=== PATIENT | female | born 1950 | race Caucasian/White ===

== ENCOUNTER 2020-12-20 14:51 | Outpatient (REF) | payer MEDICARE, SELFPAY ==
[2020-12-20 20:35] LABS: Anion Gap 8.5 mmol/L (3-11); BUN 14 mg/dL (7-18); CO2 30.5 mmol/L (21.0-32.0); CREATININE 0.8 mg/dL (0.55-1.02); Calcium 9.5 mg/dL (8.5-10.1); Calculated LDL 197 mg/dL (<100); Chloride 101 mmol/L (98-107); Cholesterol 296 mg/dL (<200); Glucose 98 mg/dL (74-106); HDL Cholesterol 71 mg/dL (40-60); Potassium 3.7 mmol/L (3.5-5.1); Sodium 140 mmol/L (136-145); TSH 2.41 uIU/mL (0.36-3.74); Triglyceride 143 mg/dL (<150)
[2020-12-20 20:47] LABS: Vitamin D 25 Total 34.5 ng/mL (30-100)
== END 2020-12-20 14:52 | disposition home or self-care (01) ==
LOC: NCHCN 14:51
PROVIDERS: Visit Provider Nurse Practitioner Family
DX: E03.9 Hypothyroidism, unspecified (principal); I10 Essential (primary) hypertension; E78.5 Hyperlipidemia, unspecified
CPT/HCPCS: 80048; 80061; 82306; 84443

== ENCOUNTER 2022-03-14 13:33 | Outpatient (REF) | payer MEDICARE, BC, SELFPAY ==
[2022-03-14 16:32] LABS: TSH 0.99 uIU/mL (0.36-3.74)
== END 2022-03-14 13:34 | disposition home or self-care (01) ==
LOC: NCHCN 13:33
PROVIDERS: PCP Nurse Practitioner Family; Visit Provider Nurse Practitioner Family
DX: E03.9 Hypothyroidism, unspecified (principal)
CPT/HCPCS: 84443

== ENCOUNTER 2022-05-18 14:52 | Outpatient (REF) | payer MEDICARE, BC, SELFPAY ==
[2022-05-18 15:28] LABS: Anion Gap 5.8 mmol/L (3-11); BUN 16 mg/dL (7-18); CO2 30.2 mmol/L (21.0-32.0); CREATININE 0.8 mg/dL (0.55-1.02); Calcium 9.7 mg/dL (8.5-10.1); Calculated LDL 148 mg/dL (<100); Chloride 104 mmol/L (98-107); Cholesterol 232 mg/dL (<200); Estimated GFR 79.22 (mL/min/1.73m2); Glucose 87 mg/dL (74-106); HDL Cholesterol 61 mg/dL (40-60); Potassium 4.3 mmol/L (3.5-5.1); Sodium 140 mmol/L (136-145); Triglyceride 116 mg/dL (<150)
[2022-05-18 16:19] LABS: Vitamin D 25 Total 31.1 ng/mL (30-100)
== END 2022-05-18 14:53 | disposition home or self-care (01) ==
LOC: NCHCN 14:52
PROVIDERS: PCP Nurse Practitioner Family; Visit Provider Nurse Practitioner Family
DX: I10 Essential (primary) hypertension (principal); E78.5 Hyperlipidemia, unspecified; F34.1 Dysthymic disorder; E03.9 Hypothyroidism, unspecified; Z79.899 Other long term (current) drug therapy
CPT/HCPCS: 80048; 80061; 82306

== ENCOUNTER 2022-10-09 15:07 | Outpatient (REF) | payer MEDICARE, BC, SELFPAY ==
--- NOTE | 2022-10-09 11:40 | SKI_PTH ---
PATIENT: Mel Jain LOC: [facility] U#:[id number] AGE/SX: 72/F ROOM: RE10/09/[address]: Henrietta Coats : 1950 BED: DIS: 10/09/2022 SPEC #: [id number] RECD: 10/09/22 18:03 STATUS: KRUNAL MENDOZA #: [id number] MICHAEL: 10/09/22 11:[address]: Henrietta Coats DEPT: Surgical Specimen RECD BY: Yudy Rodriguez ENTERED: 10/09/22 18:04 SP TYPE: JACQUI BUCHANAN DR: Gabrielle Finn Tissues: 1 - SKIN BIOPSY(SHAVE/PUNCH) Procedures: SKIN LEVEL 4 Comments: [id number]
== END 2022-10-09 15:08 | disposition home or self-care (01) ==
LOC: LBN 15:07
PROVIDERS: PCP Nurse Practitioner Family; Visit Provider Family Medicine
DX: L82.0 Inflamed seborrheic keratosis (principal)
CPT/HCPCS: 88305

== ENCOUNTER 2024-04-15 11:28 | Outpatient (REF) | payer MEDICARE, BC, SELFPAY ==
--- NOTE | 2024-04-15 11:30 | PAPFT_PTH ---
PATIENT: Mel Jain LOC: [facility] U#:[id number] AGE/SX: 74/F ROOM: RE04/15/[address]: Carmenza Guerra MD : 1950 BED: DIS: 04/15/2024 SPEC #: [id number] RECD: 04/15/24 17:43 STATUS: KRUNAL REQ #: [id number] MICHAEL: 04/15/24 11:[address]: Carmenza Guerra DEPT: [facility] Cytology RECD BY: Yudy Rodriguez ENTERED: 04/15/24 17:44 SP TYPE: PAPFT OTHR DR: Gabrielle Finn Tissues: 1 - CX/ENDOCX FOR PAP SMEARS Procedures: PAP THIN PREP/UVM Screening Comments: [id number]
== END 2024-04-15 11:29 | disposition home or self-care (01) ==
LOC: LBN 11:28
PROVIDERS: PCP Nurse Practitioner Family; Visit Provider Obstetrics & Gynecology
DX: Z12.4 Encounter for screening for malignant neoplasm of cervix (principal); R19.00 Intra-abdominal and pelvic swelling, mass and lump, unspecified site; Z91.89 Other specified personal risk factors, not elsewhere classified; R61 Generalized hyperhidrosis; K59.00 Constipation, unspecified; N81.6 Rectocele; N39.41 Urge incontinence; Z80.3 Family history of malignant neoplasm of breast
CPT/HCPCS: 88142

== ENCOUNTER 2024-05-16 00:26 | Outpatient (CLI) | payer MEDICARE, BC, SELFPAY ==
--- NOTE | 2024-05-16 | DI.US_ITS ---
Exam(s) US HERNIA EXAM: US HERNIA CLINICAL HISTORY: PELVIC PERINEAL PAIN R10.2 R INGUINAL/FEMORAL DISCOMFORT/BULGE-ASSESS FOR. TECHNIQUE: Ultrasound was performed using standard protocol. COMPARISON: No exams were available for comparison FINDINGS: Sonographic assessment utilizing grayscale and color Doppler imaging was performed and targeted to th e area of clinical concern in the right inguinal region.. A right inguinal hernia is present containing fat. A bowel loop is seen to enter the hernia with Va lsalva. Hernia neck measures 2.8-3.1 cm. No fluid. IMPRESSION: Fat containing right inguinal hernia also containing reducible bowel. DATA REPOSITORY:
== END 2024-05-16 00:46 ==
LOC: DI 00:26
PROVIDERS: PCP Nurse Practitioner Family; Visit Provider Family Medicine
DX: K40.90 Unilateral inguinal hernia, without obstruction or gangrene, not specified as recurrent (principal)
CPT/HCPCS: 76857

== ENCOUNTER 2024-05-19 16:02 | Outpatient (REF) | payer MEDICARE, BC, SELFPAY ==
[2024-05-19 20:52] LABS: Bilirubin Negative (Negative); Blood Moderate (Negative); Clarity Clear (Clear); Glucose Negative (Negative); Ketones Negative (Negative); Leukocyte Esterase Negative (Negative); Nitrite Negative (Negative); Specific Gravity 1.015 (1.005-1.025); Urobilinogen 0.2 mg/dL (Up to 0.2); pH 5.5 (5-8)
[2024-05-19 21:12] LABS: Bacteria Negative HPF (Negative); C & S Indicated? No; Casts Negative LPF (Negative); Crystals Negative HPF (Negative); Epithelial Cells Rare HPF (Negative); Mucus Negative (Negative); Other Cells Rare Transitional (Negative); RBC 0-2 HPF (0-2); WBC Negative HPF (0-5)
== END 2024-05-19 16:03 | disposition home or self-care (01) ==
LOC: NCHCN 16:02
PROVIDERS: PCP Nurse Practitioner Family; Visit Provider Nurse Practitioner Family
DX: R39.15 Urgency of urination (principal)
CPT/HCPCS: 81003; 81015

== ENCOUNTER → 2024-05-21 11:35 | Outpatient (BNVA) | payer MEDICARE, BC, SELFPAY | PROVIDERS: PCP Nurse Practitioner Family; Referring Provider Obstetrics & Gynecology; Visit Provider Surgery | DX: K46.9 Unspecified abdominal hernia without obstruction or gangrene (principal) | CPT/HCPCS: 99203 ==

== ENCOUNTER 2024-07-01 06:18 | Day surgery (SDC) | payer MEDICARE, BC, SELFPAY ==
--- NOTE | 2024-06-30 16:32 | HPE_ITS ---
Assessment and Plan Assessment and plan (1) Abdominal lump: Status: Acute Assessment and plan: We reviewed the plan for laparoscopic abdominal wall or inguinal hernia repair on the right side today. We reviewed the risks and the benefits of the proc edure, Mle had the chance to ask any other questions. No and no other significant changes, and we can proceed as planned. History of Present Illness History of Present Illness Chief Complaint: Right lower quadrant lump Narrative: Mel has a lump in the right lower quadrant of her abdominal wall. She first noticed it back in December, but she had appreciated some discomfort in the area for many months, and perhaps even years prior to that. She tells me that when she first noticed the lump back in December, she had not been doing anything out of the ordinary with regards to exercise or stress. She has, however, recently undergone myofascial release for chronic abdominal and flank pain. She relates this pain to complicated in her 30s. She also thought that perhaps a previous diagnosis of Lyme's disease might be contributing to that. Other significant medical history includes rectocele, and heterozygous factor V Leiden mutation Since her last office encounter, she has been feeling a little bit better, but admits to decreasing a lot of her physical activity to try to reduce discomfort. Otherwise, there have been no major interval changes with regards to the history. PFSH All Active Problems Night sweats (Acute) Abdominal lump (Acute) Rectal bleeding (Acute) Hypertension (Chronic) Hypothyroidism (Chronic) Medical History Allergies Hx of Lyme disease Family history of breast cancer Sister - age 45 - lumpectomy, doing well. Pt with negative genetic testing as part of a study. History of infertility Surgery for lysis of adhesions - does not think she had endometriosis. through IVF. 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 Housing: house Additional Social history: [facility] History History Para 1 Hx # Term Pregnancies Multiple births Hx # Pregnancies Ectopic pregnancies AB induced Hx Number of Living Children 1 AB spontaneous Past Pregnancies Del. Date GA/Weeks # Preg Succ Route Wgt Sex Labor Lgth Anesth esia Location Prov Complic 04/13/85 40 No Yes vaginal 8 lb 8 oz Female [place] Delivery Date: 04/13/85 Last Updated by: Kadie Morales RN [place] Meds Allergies and Home Medications Allergies Allergy/AdvReac Type Severity Reaction Status Date / Time cefotaxime (From Claforan) Allergy Severe Other (See Verified 07/01/24 06:28 Comment) adhesive Allergy Intermediate Other (See Verified 07/01/24 06:28 Comment) Iodinated Contrast Media Allergy Intermediate Skin Rash Verified 07/01/24 06:28 lisinopril Allergy Intermediate Other (See Verified 07/01/24 06:28 Comment) Home Medications ?Medication ?Instructions ?Recorded ?Confirmed ?Type amlodipine 5 mg tablet 5 mg PO DAILY 04/04/21 07/01/24 History calcium carbonate (Calcium 500) 500 mg PO DAILY 04/04/21 06/27/24 History cholecalciferol (vitamin D3) 50 50 mcg PO DAILY 04/04/21 06/27/24 History mcg (2,000 unit) capsule clonazepam 1 mg tablet 0.5 mg PO QHS 04/04/21 06/27/24 History lactobacillus combination no.9 4 4,000 mmu cells PO DAILY 04/04/21 06/27/24 History billion cell capsule (Adult 50 Plus Probiotic) multivitamin 1 tab PO DAILY 04/04/21 06/27/24 History omega-3 fatty acids 1,000 mg 1,000 mg PO DAILY 04/04/21 06/27/24 History capsule propylene glycol 0.6 % eye drops 1 drp ophthalmic (eye) DAILY PRN 04/04/21 06/27/24 History (Lubricant Eye (propylene glycol)) levothyroxine 125 mcg tablet 112 mcg PO DAILY 04/15/24 07/01/24 History (Synthroid) olmesartan 20 mg tablet 20 mg PO DAILY 04/15/24 07/01/24 History propranolol 20 mg tablet 20 mg PO DAILY 04/15/24 07/01/24 History polyethylene glycol 3350 17 17 g PO DAILY 06/24/24 06/27/24 History gram/dose oral powder (Miralax) Exam Const General: cooperative, healthy appearing and not in acute distress Neck Neck: normal visual inspection, no lymphadenopathy and supple Resp Effort & Inspection: normal respiratory effort Auscultation: clear to auscultation bilaterally Cardio Jugular venous pressure: no JVD Rate: regular rate Rhythm: regular rhythm Heart Sounds: S1 normal and S2 normal GI Inspection: normal to inspection Palpation: soft, no guarding, hernia (Hard to appreciate an inguinal hernia today, but mild tenderness) and nontender Percussion: normal to percussion Auscultation: normal bowel sounds Neuro General: patient alert, patient awake and patient oriented x3 Psych Appearance: grossly normal
--- NOTE | 2024-06-30 16:33 | W.PM.DSUDISC ---
Date of service: 07/01/24 Discharge Plan Disposition Patient Disposition: Home Condition: Good Discharge Details Reason For Visit: Laparoscopic inguinal hernia repair Attending Provider: Aman Null Primary Care Provider: Gabrielle Finn Home Meds and New Rx's Prescriptions: New tramadol 50 mg tablet 50 mg PO Q8H PRNQty: 9 0RF Rx Instructions: Take 1 tablet by mouth up to every 8 hours if needed for severe pain. Continued propranolol 20 mg tablet 20 mg PO DAILY Patient Comments: Per pt. states can take up to 60mg PRN olmesartan 20 mg tablet 20 mg PO DAILY Adult 50 Plus Probiotic 4 billion cell capsule 4,000 mmu cells PO DAILY Rx Instructions: administer with a meal multivitamin Tablet 1 tab PO DAILY Lubricant Eye (propyl glycol) 0.6 % drops 1 drp ophthalmic (eye) DAILY PRN clonazepam 1 mg tablet 0.5 mg PO QHS Rx Instructions: administer 30 minutes before bedtime amlodipine 5 mg tablet 5 mg PO DAILY calcium carbonate [Calcium 500] 500 mg calcium (1,250 mg) tablet,chewable 500 mg PO DAILY omega-3 fatty acids 1,000 mg capsule 1,000 mg PO DAILY cholecalciferol (vitamin D3) 50 mcg (2,000 unit) capsule 50 mcg PO DAILY levothyroxine [Synthroid] 125 mcg tablet 112 mcg PO DAILY polyethylene glycol 3350 [Miralax] 17 gram/dose powder 17 g PO DAILY Discharge Instructions Instructions: Groin Hernia Repair, Laparoscopic Surgery Additional Instructions: Mel is good seeing you today, hope you make a quick recovery after the operation. Things went very smoothly, we are able to find the origin of the hernia, which did in fact involve the right inguinal region, or right groin. And repair of this with permanent mesh. In the process of doing so, we also discovered a very small right-sided femoral hernia, that we were able to address during this operation as well. Everything went very smoothly. Expect to get some bruising around the incision sites, even down into the groin after surgery. That is very common. You should be up and moving around a little bit more more each day. Please keep your lifting less than about a gallon of milk until we see each other in the office to ensure that everything feels well and is settling into place. If you need anything at all, please do not hesitate to ask, otherwise look forward to seeing you at your postoperative visit. 1. Resume all of your regular medications. 2. Use ice packs over the incision, and at points of pain if needed for pain and swelling. 3. Alternate [id number] Tylenol and ibuprofen every 6 hours for the first 2 days, then use as needed. Use the prescription for tramadol if needed for more severe pain 4. Leave bandage in place for 24 hours, then remove. 5. Shower with warm soapy water. Pat dry. Use a bandaid if needed to protect your clothing. 6. No soaking or tub baths until I see you in the office. 7. No heavy lifting until I see you in the office. 8. Call the office (or go directly to the emergency room after hours) if you notice any of the following: Develop chills (warm to touch), or if you have a thermometer and your temperature is above 101 Difficulty breathing or difficultly swallowing Persistent vomiting Any bleeding ? exceeding one tablespoon 9. Call your physician if the site where your intravenous was started becomes red, swollen, painful, and warm to touch. Referrals: Aman Null MD [ [facility] STAFF PHYSICIAN] - (July 16 at 1 PM) Activity:: No heavy lifting Remove Dressings/Wound Care:: 24 hours Shower/Bathe:: 24 hours Diet:: As Tolerated Discharge Orders Discharge Orders: Discharge Order (Routine); Ordered 06/30/24 Ordered By: Aman Null DS: Diagnosis Discharge Diagnosis (1) Inguinal hernia of right side with gangrene: Status: Acute
[2024-07-01] VITALS (30 sets, daily range): BP systolic 86–132; BP diastolic 44–99; PULSE 46–62; RESP 11–21; TEMP 36–36.6; O2SAT 88–97; BMI 30.4
[2024-07-01] MEDS: Gabapentin 300 MG CAP PO (06:53)
[2024-07-01] MEDS: Acetaminophen 500 MG TAB 1000 MG PO (06:53)
[2024-07-01] MEDS: Celecoxib 200 MG CAP PO (06:53)
--- NOTE | 2024-07-01 06:54 | W.ANESPRE ---
General Info Date of Service Date Performed: 07/01/24 Height: 5 ft 5 in Weight: 83 kg Body Mass Index (BMI): 30.4 Surgical Procedure: Operation Date: 07/01/24 07:40 Proposed Procedure Side Surgeon p Hernia Inguinal Laparoscopic Right Aman Null MD Meds Allergies and Home Medications Allergies Allergy/AdvReac Type Severity Reaction Status Date / Time cefotaxime (From Claforan) Allergy Severe Other (See Verified 07/01/24 06:28 Comment) adhesive Allergy Intermediate Other (See Verified 07/01/24 06:28 Comment) Iodinated Contrast Media Allergy Intermediate Skin Rash Verified 07/01/24 06:28 lisinopril Allergy Intermediate Other (See Verified 07/01/24 06:28 Comment) Home Medication ?Medication ?Instructions ?Recorded amlodipine 5 mg tablet 5 mg PO DAILY 04/04/21 calcium carbonate (Calcium 500) 500 mg PO DAILY 04/04/21 cholecalciferol (vitamin D3) 50 50 mcg PO DAILY 04/04/21 mcg (2,000 unit) capsule clonazepam 1 mg tablet 0.5 mg PO QHS 04/04/21 lactobacillus combination no.9 4 4,000 mmu cells PO DAILY 04/04/21 billion cell capsule (Adult 50 Plus Probiotic) multivitamin 1 tab PO DAILY 04/04/21 omega-3 fatty acids 1,000 mg 1,000 mg PO DAILY 04/04/21 capsule propylene glycol 0.6 % eye drops 1 drp ophthalmic (eye) DAILY PRN 04/04/21 (Lubricant Eye (propylene glycol)) levothyroxine 125 mcg tablet 112 mcg PO DAILY 04/15/24 (Synthroid) olmesartan 20 mg tablet 20 mg PO DAILY 04/15/24 propranolol 20 mg tablet 20 mg PO DAILY 04/15/24 polyethylene glycol 3350 17 17 g PO DAILY 06/24/24 gram/dose oral powder (Miralax) tramadol 50 mg tablet 50 mg PO Q8H PRN #9 tabs 07/01/24 Current Visit Medications: Current Medications Generic Name Dose Route Start Last Admin Trade Name Freq PRN Reason Stop Dose Admin Acetaminophen 1,000 mg 07/01/24 06:00 07/01/24 06:53 Acetaminophen 500 Mg Tab PO 07/01/24 23:59 1,000 mg PREOP JACEY Administration Celecoxib 200 mg 07/01/24 06:00 07/01/24 06:53 Celecoxib 200 Mg Cap PO 07/01/24 23:59 200 mg PREOP JACEY Administration Gabapentin 300 mg 07/01/24 06:00 07/01/24 06:53 Gabapentin 300 Mg Cap PO 07/01/24 23:59 300 mg PREOP JACEY Administration Hydromorphone HCl 0.2 mg 06/30/24 16:34 Hydromorphone 2 Mg/Ml Syr IVP 07/30/24 16:33 Q1H PRN PRN Ringer's Solution 1,000 mls @ 80 mls/hr 07/01/24 06:00 IV 07/01/24 23:59 INFUSION JACEY Cefazolin Sodium/Dextrose 2 gm in 50 mls @ 100 mls/hr 07/01/24 06:00 Ancef Duplex IVPB 07/01/24 23:59 PREOP JACEY IV Miscellaneous Supplies 1 each 07/01/24 06:00 Iv Access IV 07/01/24 23:59 DIRECTED JACEY Sodium Chloride 0 ml 07/01/24 06:00 Normal Saline Flush 10 Ml Syr IV 07/01/24 23:59 PRN PRN Sodium Chloride 0 ml 07/01/24 06:00 Normal Saline 10 Ml Vial IJ 07/01/24 23:59 DIRECTED PRN Sterile Water 0 ml 07/01/24 06:00 Water,Injection,Sterile 10 Ml Vial IJ 07/01/24 23:59 DIRECTED PRN Tramadol HCl 50 mg 06/30/24 16:34 Tramadol 50 Mg Tab PO 07/30/24 16:33 Q6H PRN PRN Pain PFSH Active Problems Active Problems: Problem Status Onset Code Night sweats Acute R61 Abdominal lump Acute R19.00 Rectal bleeding Acute K62.5 Hypertension Chronic I10 Hypothyroidism Chronic E03.9 Medical History Medical History Allergies Hx of Lyme disease Family history of breast cancer Sister - age 45 - lumpectomy, doing well. Pt with negative genetic testing as part of a study. History of infertility Surgery for lysis of adhesions - does not think she had endometriosis. through IVF. 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 Prental History History Para 1 Hx # Term Pregnancies Multiple births Hx # Pregnancies Ectopic pregnancies AB induced Hx Number of Living Children 1 AB spontaneous Past Pregnancies Del. Date GA/Weeks # Preg Succ Route Wgt Sex Labor Lgth Anesthesia Location Prov Complic 04/13/85 40 No Yes vaginal 3855.535 g Female [place], [place] Delivery Date: 04/13/85 Last Updated by: ALEXX Irving Vital Signs and Lab Results Vital Signs Most Recent Vital Signs in EMR: Most Recent Vital Signs Temp Pulse Resp BP Pulse Ox 36.3 C L 62 18 132/99 H 97 07/01/24 06:36 07/01/24 06:36 07/01/24 06:36 07/01/24 06:36 07/01/24 06:36 Lab Results Blood Type / Crossmatch: No Data to Display Complete Blood Count: No Data to Display Complete Metabolic Panel: No Data to Display Liver Function Panel: No Data to Display Coagulation Panel: No Data to Display Cardiac Panel: No Data to Display Arterial Blood Gas: No Data to Display Venous Blood Gas: No Data to Display Pancreas Panel: No Data to Display Thyroid Panel: No Data to Display Infectious Disease: No Data to Display Blood Cultures: No Data to Display Toxicology Panel: No Data to Display Anesthesia Assessment and Plan Anesthesia History Personal History: Awareness Under Anesthesia Family History: No Family History of Anesthesia Complications Exercise Tolerance Exercise Tolerance: Metabolic Equivalents>4 Pertinent Negatives Pertinent Negatives: No Symptoms of GERD, No Major Cardiovascular Symptoms or Complaints and No Major Pulmonary Symptoms or Complaints Cardiac & Pulmonary Exam Cardiac Exam: Normal S1/S2 Heart Sounds Pulmonary Exam: Clear Bilateral Breath Sounds Implantable Cardiac Device Does patient have a Pacemaker or an ICD?: No Airway Exam Known Difficult Airway: No Mallampati Class: 2 Mouth Opening: Normal (> 3cm) Thyromental Distance: Greater than 3 cm Neck Range of Motion: Full ROM Neck Circumference: Normal Teeth Condition: Normal Dentition ASA Classification ASA Score: ASA 2 Emergency Case?: No NPO Status NPO Status: NPO Clears >2 hours, Solids >8 hours Anesthesia Plan Resuscitation Status: Full Code Anesthesia Technique: General Anesthesia Airway Planned: Endotracheal Tube Monitors Used: Standard Monitors and SedLine
--- NOTE | 2024-07-01 07:01 | PDOC.DSDIS_ITS ---
Date of service: 07/01/24 Discharge Plan Disposition Patient Disposition: Home Condition: Good Discharge Details Reason For Visit: Laparoscopic inguinal hernia repair Attending Provider: Aman Null Primary Care Provider: Gabrielle Finn Home Meds and New Rx's Prescriptions: New tramadol 50 mg tablet 50 mg PO Q8H PRNQty: 9 0RF Rx Instructions: Take 1 tablet by mouth up to every 8 hours if needed for severe pain. Continued propranolol 20 mg tablet 20 mg PO DAILY Patient Comments: Per pt. states can take up to 60mg PRN olmesartan 20 mg tablet 20 mg PO DAILY Adult 50 Plus Probiotic 4 billion cell capsule 4,000 mmu cells PO DAILY Rx Instructions: administer with a meal multivitamin Tablet 1 tab PO DAILY Lubricant Eye (propyl glycol) 0.6 % drops 1 drp ophthalmic (eye) DAILY PRN clonazepam 1 mg tablet 0.5 mg PO QHS Rx Instructions: administer 30 minutes before bedtime amlodipine 5 mg tablet 5 mg PO DAILY calcium carbonate [Calcium 500] 500 mg calcium (1,250 mg) tablet,chewable 500 mg PO DAILY omega-3 fatty acids 1,000 mg capsule 1,000 mg PO DAILY cholecalciferol (vitamin D3) 50 mcg (2,000 unit) capsule 50 mcg PO DAILY levothyroxine [Synthroid] 125 mcg tablet 112 mcg PO DAILY polyethylene glycol 3350 [Miralax] 17 gram/dose powder 17 g PO DAILY Discharge Instructions Instructions: Groin Hernia Repair, Laparoscopic Surgery Additional Instructions: Mel is good seeing you today, hope you make a quick recovery after the operation. Things went very smoothly, we are able to find the origin of the hernia, which did in fact involve the right inguinal region, or right groin. And repair of this with permanent mesh. In the process of doing so, we also discovered a very small right-sided femoral hernia, that we were able to address during this operation as well. Everything went very smoothly. Expect to get some bruising around the incision sites, even down into the groin after surgery. That is very common. You should be up and moving around a little bit more more each day. Please keep your lifting less than about a gallon of milk until we see each other in the office to ensure that everything feels well and is settling into place. If you need anything at all, please do not hesitate to ask, otherwise look forward to seeing you at your postoperative visit. 1. Resume all of your regular medications. 2. Use ice packs over the incision, and at points of pain if needed for pain and swelling. 3. Alternate [id number] Tylenol and ibuprofen every 6 hours for the first 2 days, then use as needed. Use the prescription for tramadol if needed for more severe pain 4. Leave bandage in place for 24 hours, then remove. 5. Shower with warm soapy water. Pat dry. Use a bandaid if needed to protect your clothing. 6. No soaking or tub baths until I see you in the office. 7. No heavy lifting until I see you in the office. 8. Call the office (or go directly to the emergency room after hours) if you notice any of the following: Develop chills (warm to touch), or if you have a thermometer and your temperature is above 101 Difficulty breathing or difficultly swallowing Persistent vomiting Any bleeding ? exceeding one tablespoon 9. Call your physician if the site where your intravenous was started becomes red, swollen, painful, and warm to touch. Referrals: Aman Null MD [ [facility] STAFF PHYSICIAN] - (July 16 at 1 PM) Activity:: No heavy lifting Remove Dressings/Wound Care:: 24 hours Shower/Bathe:: 24 hours Diet:: As Tolerated Discharge Orders Discharge Orders: Discharge Order (Routine); Ordered 06/30/24 Ordered By: Aman Null DS: Diagnosis Discharge Diagnosis (1) Abdominal lump: Status: Acute Asessment and Plan: Routine postoperative follow-up
[2024-07-01] MEDS: Lactated Ringers 1,000 ML 80 ML IV (07:08)
[2024-07-01] MEDS: ceFAZolin 2 GM/50 ML BAG IVPB (07:54)
[2024-07-01] MEDS: Bupivacaine LIPOSOME/PF 133 MG/10 ML VIAL IJ (08:22)
[2024-07-01] MEDS: Bupivacaine 0.25% Pres-Free 30 ML VIAL (08:24)
--- NOTE | 2024-07-01 10:08 | W.PM.OP ---
Operative Note Operative Note PRE-OP DIAGNOSIS: Right inguinal hernia POST-OP DIAGNOSIS: other (Right-sided direct, indirect, femoral hernias) PROCEDURE: Laparoscopic right inguinal and femoral hernia repair SURGEON: Aman Null ASSISTING SURGEON: Sarwat Ventura ANESTHESIA TYPE: Local By Surgeon and General LMA/ETT Refer to Anesthesia Record ESTIMATED BLOOD LOSS: 25 PATHOLOGY: none sent Patient was transported to: PACU Patient's condition: stable Implants: Bard 3D max mid weight mesh Indications: Mel is a 74-year-old woman with a right lower quadrant abdominal wall lump. She has pain associated with this during increased exercise and activity. Findings: Right-sided inguinal hernia with direct and indirect components, subclinical right-sided femoral hernia Procedure Description: I met with Mel in the preoperative area, and we reviewed the plan for surgery on the right side. She had the chance to ask any other questions, but she had none, and we then moved back to the operating room. She was assisted onto the OR table, great care was taken to ensure that she was padded and supported appropriately. General anesthesia was initiated and after the bladder was straight catheterized, the left arm was gently tucked, again taking care to ensure that it was appropriately positioned. We prepped and draped the anterior abdominal wall and inguinal regions in the usual fashion. I anesthetized the skin and made a 5 mm incision at the umbilicus. Peritoneum was accessed under direct vision using a optical viewing port, pneumoperitoneum was established. The patient was placed in some Trendelenburg positioning. Careful examination of the right inguinal region demonstrated evidence of a combined direct and indirect inguinal hernia. 5 mm ports were placed in the right and left mid abdomen's under the view of the scope. The umbilical port was then upsized to 12 mm. The peritoneum was incised above the level of the iliopectineal line, and the peritoneum was gently dissected dissected away. This dissection was carried down towards the inferior epigastric vessels. The defect of the internal ring was carefully dissected, and preperitoneal fat was reduced out of the inguinal canal. This was completely dissected clean. Once this was reduced, I turned my attention to the more medial direct defect. Again, there was fat incarcerated here, which was gently reduced out. Once this was completely dissected free, we continued dissecting the preperitoneal space to the pubic tubercle and inferiorly completely exposing the myopectineal orifice. Some small bridging vessels were ligated using the LigaSure device as the dissection approached the femoral ring. There was a small amount of preperitoneal fat herniated through the femoral empty space. This was all dissected clean. Once the myopectineal critical view was fully exposed, I selected a Bard 3D mid weight max mesh and deliver this down into the preperitoneal space taking great care to ensure that it was well-seated at the pubic tubercle, and completely overlying the femoral ring, as well as the direct and indirect inguinal hernia defects. The mesh was pexied in place with interrupted Vicryl sutures. The site was examined, and it was all hemostatic. The peritoneum was then closed with a V-Loc suture. The 12 mm port was removed, the midline fascia was reapproximated with interrupted Vicryl suture. The 5 mm ports were removed, and all the skin defects were closed with subcuticular stitches. Bandages were applied, the patient was awoken from the anesthetic and transferred to the recovery unit. Date of Procedure: 07/01/24
[2024-07-01] MEDS: HYDROmorphone 2 MG/ML SYR IVP (10:34)
[2024-07-01] MEDS: Normal Saline Flush 10 ML SYR IV (11:39)
== END 2024-07-01 13:57 | disposition home or self-care (01) ==
PROVIDERS: PCP Nurse Practitioner Family; Visit Provider Surgery
PROC: (CPT 49650; principal; 2024-07-01 07:30)
DX: K40.40 Unilateral inguinal hernia, with gangrene, not specified as recurrent (principal); K41.90 Unilateral femoral hernia, without obstruction or gangrene, not specified as recurrent
CPT/HCPCS: 49650; 49550; C1781; J0665; J0666; J0690; J1100; J1171; J1790; J2003; J2250; J2371; J2405; J2704; J3010

== ENCOUNTER → 2024-07-16 12:56 | Outpatient (BNVA) | payer MEDICARE, BC, SELFPAY | PROVIDERS: PCP Nurse Practitioner Family; Referring Provider Nurse Practitioner Family; Visit Provider Surgery | DX: Z48.817 Encounter for surgical aftercare following surgery on the skin and subcutaneous tissue (principal) ==

== ENCOUNTER 2024-08-14 13:45 | Outpatient (REF) | payer MEDICARE, BC, SELFPAY | END 2024-08-14 13:46 | disposition home or self-care (01) | LOC: NCHCN 13:45 | PROVIDERS: PCP Family Medicine; Visit Provider Family Medicine | DX: R31.29 Other microscopic hematuria (principal); R82.89 Other abnormal findings on cytological and histological examination of urine | CPT/HCPCS: 88104 ==

== ENCOUNTER 2024-12-26 14:17 | Outpatient (REF) | payer MEDICARE, BC, SELFPAY ==
[2024-12-26 17:29] LABS: Hemoglobin A1C 5.5 % (<5.7)
[2024-12-26 17:42] LABS: Anion Gap 9.6 mmol/L (3-11); BUN 17 mg/dL (7-18); CO2 27.4 mmol/L (21.0-32.0); Calcium 9.2 mg/dL (8.5-10.1); Calculated LDL 171 mg/dL (<100); Chloride 102 mmol/L (98-107); Cholesterol 262 mg/dL (<200); Estimated GFR 91.83 (mL/min/1.73m2); Glucose 81 mg/dL (74-106); HDL Cholesterol 69 mg/dL (>or=50); Potassium 4.6 mmol/L (3.5-5.1); Sodium 139 mmol/L (136-145); TSH 7.74 uIU/mL (0.36-3.74); Triglyceride 111 mg/dL (<150)
[2024-12-27 22:50] LABS: T3, Total 89 ng/dL (82-158)
== END 2024-12-26 14:18 | disposition home or self-care (01) ==
LOC: NCHCN 14:17
PROVIDERS: PCP Family Medicine; Visit Provider Family Medicine
DX: E03.9 Hypothyroidism, unspecified (principal); E78.5 Hyperlipidemia, unspecified; Z13.1 Encounter for screening for diabetes mellitus; Z01.818 Encounter for other preprocedural examination
CPT/HCPCS: 80048; 80061; 83036; 84439; 84443; 84480

== ENCOUNTER → 2025-03-03 00:25 | Outpatient (CLI) | payer MEDICARE, BC, SELFPAY ==
--- NOTE | 2025-03-03 12:11 | DI.MAMMO_ITS ---
Exam(s) MAMMO SCREENING EXAM: MAMMO SCREENING CLINICAL HISTORY: screening,z12.31 TECHNIQUE: Bilateral full field digital CC and MLO mammographic images were obtained with 3D tomosynthesis and utilizing computer aided detection (CAD). COMPARISON: Comparison is made with prior examinations. FINDINGS: Masses/Architectural Distortion: No suspicious masses or areas of architectural distortion are present. Microcalcifications: No suspicious pleomorphic-type are seen. Skin Thickening/Nipple Retraction: None. IMPRESSION: 1. No significant interval change with no specific features of malignancy noted. 2. Unless there is more urgent need, screening mammography is recommended, as per [employer] guidelines. BI-RADS Category 1 - Negative Breast Density - Category B - There are scattered areas of fibroglandular density. Breast density Category C or D implies that the patient has dense breast tissue. Dense breast tissue can make it harder to find cancer on a mammogram. Dense breast tissue is also associated with an increased risk of breast cancer. This information about the result of the mammogram report was provided to the patient to raise their awareness. Use this report when you speak with the patient about their risks for breast cancer, which includes their family history. At that time, you may recommend additional screening tests (Ultrasound or MRI) as these tests may add significant information. A negative radiographic report should not delay biopsy if a dominant or clinically suspicious mass is present. Up to ten percent of cancers are not identified on mammography. A negative report may reinforce clinical impression. Adenosis and dense breasts may obscure an underlying neoplasm. False positive reports average 6 to 10%. Patient will receive a letter notifying them of these results.
== END ==
LOC: DI 00:25
PROVIDERS: PCP Family Medicine; Visit Provider Obstetrics & Gynecology
DX: Z12.31 Encounter for screening mammogram for malignant neoplasm of breast (principal)
CPT/HCPCS: 77063; 77067